=== PATIENT | female | born 1945 | race Caucasian/White ===

== ENCOUNTER 2023-04-23 20:44 | Emergency (ER) | payer MEDICARE, BC ==
[2023-04-23 21:25] VITALS: BP 129/77; PULSE 83; RESP 16; TEMP 98.2
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
== END 2023-04-23 22:18 | disposition home or self-care (01) ==
LOC: EC 20:44
DX: S91.012A Laceration without foreign body, left ankle, initial encounter (principal); E78.5 Hyperlipidemia, unspecified; I10 Essential (primary) hypertension; Z79.899 Other long term (current) drug therapy; Z79.82 Long term (current) use of aspirin; X58.XXXA Exposure to other specified factors, initial encounter
CPT/HCPCS: 12002; 99283